=== PATIENT | male | born 1975 | race African-American/Black ===

== ENCOUNTER 2024-08-04 16:55 | Emergency (ER) | payer OTHER, SELFPAY ==
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
[2024-08-04 17:11] VITALS: BP 107/68; PULSE 66; RESP 16; TEMP 37; O2SAT 100; BMI 22.4
[2024-08-04 18:35] VITALS: BP 126/78; PULSE 69; RESP 20; TEMP 35.9; O2SAT 100
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
[2024-08-04 18:57] VITALS: BP 126/78; PULSE 69; RESP 20; TEMP 35.9; O2SAT 100
== END 2024-08-04 18:57 | disposition home or self-care (01) ==
PROVIDERS: Emergency Provider Internal Medicine; PCP Internal Medicine
DX: Z04.1 Encounter for examination and observation following transport accident (principal); M54.2 Cervicalgia
CPT/HCPCS: 72040; 99282; 99283

== ENCOUNTER → 2024-08-04 17:25 | Outpatient (BNV) | payer OTHER, SELFPAY | PROVIDERS: PCP Internal Medicine; Visit Provider Radiology Diagnostic Radiology | DX: M54.2 Cervicalgia (principal) | CPT/HCPCS: 72040 ==